=== PATIENT | female | born 1935 | race Caucasian/White ===

== ENCOUNTER → 2016-04-07 | Outpatient (CLI) | payer MEDICARE, OTHER | LOC: GMAJ 15:56 | PROVIDERS: ATTEND Family Medicine | DX: N39.0 Urinary tract infection, site not specified (principal) ==

== ENCOUNTER → 2016-05-05 | Outpatient (CLI) | payer MEDICARE, OTHER ==
--- NOTE | 2016-05-06 07:36 | MRI ---
Study: MRI of the Right Hip. Indication: Right hip pain Technique: Multiplanar, multi sequence MRI of the right hip was obtained without intravenous contrast. Comparison: None. Findings: Marked degenerative tearing noted throughout the entirety of the right hip labrum. There is a large multilobulated para labral cyst tracking along the superior and posterior superior aspects of the acetabulum. It measures up to 35 mm AP. Grade 3 and mild grade 4 chondral thinning throughout the majority of the right hip joint. Mild acetabular roof osteophyte formation. No acute fracture or osteonecrosis. Tiny right effusion. Tendinosis bilateral gluteus minimus/medius tendon insertions with mild bilateral greater trochanteric bursal edema. In addition, there is a 3 cm ganglionic-like fluid collection tracking along the deep margin of the mid to distal left gluteus medius tendon. Tendinosis and attenuation bilateral hamstring tendon origins, left greater than right. Pronounced lower lumbar disc disease. Mild pubic symphysis osteoarthritis. Patchy diminished T1 marrow signal noted throughout the pelvis without corresponding elevated STIR signal. This may reflect red marrow reconversion but is nonspecific. Impression: Moderate right hip osteoarthritis with pronounced degenerative tearing of the right hip labrum with an associated large paralabral cyst as above. Suspected red marrow reconversion throughout the pelvis but ultimately nonspecific marrow signal changes. [place] with CBC recommended. Additional findings above. Electronically signed by: Lamont Carl MD 05/06/2016 7:35 AM HEALTHCARE ARCHITECT
== END | disposition home or self-care (01) ==
LOC: MRI 09:36
PROVIDERS: ATTEND Orthopaedic Surgery
DX: M16.11 Unilateral primary osteoarthritis, right hip (principal)

== ENCOUNTER 2016-05-27 05:51 | Day surgery (SDC) | payer MEDICARE, OTHER ==
[2016-05-27] MEDS ORDERED: LACTATED RINGERS 1,000 ML ONE (06:23)
[2016-05-27] MEDS ORDERED: LIDOCAINE 1% W/ EPINEPHRINE 20 ML VIAL INJ ONE (07:00)
[2016-05-27] MEDS ORDERED: methylPREDNISolone ACETATE 80 MG/ML VIAL ONE ×2 (07:00→07:47)
[2016-05-27] MEDS ORDERED: LIDOCAINE 1% 10 ML VIAL INJ ONE (07:00)
[2016-05-27] MEDS ORDERED: PROPOFOL 200 MG/20 ML VIAL IV ONE (07:00)
[2016-05-27] MEDS ORDERED: BUPIVACAINE 0.25% INJ 30 ML VIAL INJ ONE (07:00)
[2016-05-27] MEDS ORDERED: fentaNYL CITRATE INJ 50 MCG/ML AMP ONE (07:27)
[2016-05-27 08:40] VITALS: BP 125/53; TEMP 97.6; O2SAT 97
--- NOTE | 2016-06-02 09:16 | OP ---
DATE OF PROCEDURE: 05/27/16 PREOPERATIVE DIAGNOSIS: 1. Hip arthritis. 2. Rotator cuff tear. 3. Carpometacarpal arthritis. POSTOPERATIVE DIAGNOSIS: 1. Hip arthritis. 2. Rotator cuff tear. 3. Carpometacarpal arthritis. PROCEDURE: 1. Injection of the hip under anesthesia. 2. Injection of the subacromial space. 3. Injection of the first carpometacarpal joint. SURGEON: Diony Meyer MD BUSINESS SYSTEMS TECHNICIAN: Ventura Cisneros CST, SA-C ANESTHESIA: Conscious sedation. COMPLICATIONS: None. FINDINGS: 1. Hip arthritis. 2. Rotator cuff tear. 3. Osteoarthritis of the first carpometacarpal joint. INDICATION: Ms. Lyle is an 80-year-old female with a history of pain in all three regions as mentioned above. She has requested injection into all three regions and because she was undergoing hip injection under fluoroscopic imaging , she requested that the other two injections be done the conscious sedation as well. After discussing the risks, benefits and alternatives to that, she has given informed consent for that. PROCEDURE: The patient was brought to the Operating Room and placed in supine position. Conscious sedation was administered. The groin was sterilely prepped and draped. Following prepping, a needle was passed into the hip joint. After confirmation of placement of the needle, a combination of Depo- Medrol and lidocaine were injected. The needle was withdrawn and pressure was held. Attention was then focused on the shoulder. The shoulder and first carpometacarpal joint were sterilely prepped and a combination of Depo-Medrol and lidocaine were injected into both areas. All three areas had Band-Aids placed and the patient was taken to the Day Surgery Unit. POSTOPERATIVE INSTRUCTIONS: She will followup with us in about ten days. She will be weight-bearing as tolerated as well as range of motion as tolerated in the shoulder and thumb. #[id number] [facility]
== END 2016-05-27 09:35 | disposition home or self-care (01) ==
LOC: AMB 05:51
PROVIDERS: ATTEND Orthopaedic Surgery
DX: M16.11 Unilateral primary osteoarthritis, right hip (principal); M75.42 Impingement syndrome of left shoulder; M13.842 Other specified arthritis, left hand; Z96.659 Presence of unspecified artificial knee joint; Z79.899 Other long term (current) drug therapy
CPT/HCPCS: 01200; 20600; 20610; 76000; 87070; J1030; J3010; J3490; J7120

== ENCOUNTER → 2016-06-03 | Outpatient (CLI) | payer MEDICARE, OTHER | LOC: GMAJ 14:32 | PROVIDERS: ATTEND Family Medicine | DX: D64.9 Anemia, unspecified (principal) ==

== ENCOUNTER → 2016-06-10 | Outpatient (CLI) | payer MEDICARE, OTHER | END | disposition home or self-care (01) | LOC: BFHH 14:36 | PROVIDERS: ATTEND Internal Medicine Hematology & Oncology | DX: D64.9 Anemia, unspecified (principal) ==

== ENCOUNTER → 2016-06-17 | Outpatient (CLI) | payer MEDICARE, OTHER | LOC: BFHH 12:26 | PROVIDERS: ATTEND Family Medicine | DX: D64.9 Anemia, unspecified (principal) ==

== ENCOUNTER → 2016-06-24 | Outpatient (CLI) | payer MEDICARE, OTHER | END | disposition home or self-care (01) | LOC: BFHH 11:05 | PROVIDERS: ATTEND Internal Medicine Hematology & Oncology | DX: D64.9 Anemia, unspecified (principal) ==

== ENCOUNTER → 2016-07-01 | Outpatient (CLI) | payer MEDICARE, OTHER | LOC: BFHH 13:41 | PROVIDERS: ATTEND Family Medicine | DX: D64.9 Anemia, unspecified (principal) ==

== ENCOUNTER → 2016-07-02 | Outpatient (CLI) | payer MEDICARE, OTHER | LOC: LAB.O 08:49 | PROVIDERS: ATTEND Orthopaedic Surgery | DX: Z01.818 Encounter for other preprocedural examination (principal) ==

== ENCOUNTER → 2016-07-08 | Outpatient (CLI) | payer MEDICARE, OTHER | LOC: BFHH 11:42 | PROVIDERS: ATTEND Internal Medicine Hematology & Oncology | DX: D64.9 Anemia, unspecified (principal) ==

== ENCOUNTER 2016-07-14 06:02 | Day surgery (SDC) | payer MEDICARE, OTHER ==
--- NOTE | 2016-07-11 11:52 | HP ---
CHIEF COMPLAINT: Foreign body of the left third digit. HISTORY OF PRESENT ILLNESS: Ms. Lyle is an 80 year-old female with a history of mass on the left third digit of the distal end. Ms. Lyle remembers having a piece of glass stuck in there. She said she tried to get it out and thought she had at the time. The end of the digit has been irritated ever since then, although she has had no drainage. She denies any other injury associated with this. PAST SURGICAL HISTORY: 1. Rotator cuff repair. 2. Bunionectomy. 3. Herniorrhaphy. 4. Carotid endarterectomy. 5. Right knee arthroscopy. 6. Total knee arthroplasty. CURRENT MEDICATIONS: 1. Ultram. 2. Simvastatin. 3. Levothyroxine. 4. Diovan. 5. Aspirin. 6. Zantac. 7. Plaquenil. 8. Prednisone. 9. Remicade. ALLERGIES: PENICILLIN. CODE STATUS: FULL CODE. IMMUNIZATIONS: Up to date. FAMILY HISTORY: None pertinent to today's complaints. SOCIAL HISTORY: The patient does not drink, smoke or use any illicit drugs. REVIEW OF SYSTEMS: Negative except as indicated in the History of Present Illness. PHYSICAL EXAMINATION: VITAL SIGNS: Blood pressure 141/62, pulse 67, height 5' 6", weight 153. MENTAL STATUS: The patient is awake, alert, and is able to give a good history and participate in the physical. The patient is oriented to person, place and time. SKIN: Normal tone and turgor. MUSCULOSKELETAL: She has a small area at the distal end of the digit that has some whitish discoloration but it does not appear purulent and there is no surrounding erythema. She has warm and well perfused extremity. Sensation is intact. She maintains full range of motion. X-RAYS: X-rays do show a small piece of glass in the distal finger. ASSESSMENT: 1. Foreign body of the finger. PLAN: The plan at this point is for excision of the foreign body. We have discussed the risks, benefits, and alternatives to that and she has given informed consent for that. #[id number] [facility]
[2016-07-14] MEDS ORDERED: CARBOXYMETHYLCELLULOSE 0.5% 0.4 ML UD ONE (06:22)
[2016-07-14] MEDS ORDERED: MIDAZOLAM INJ 5 MG/5 ML VIAL ONE (06:22)
[2016-07-14] MEDS ORDERED: MORPHINE SULF *EPIDURAL* 1 MG/ML VIAL ONE (06:22)
[2016-07-14] MEDS ORDERED: fentaNYL CITRATE INJ 50 MCG/ML AMP ONE ×2 (06:22→09:57)
[2016-07-14] MEDS ORDERED: ACETAMINOPHEN IV 1000MG 0 ML ONE (06:28)
[2016-07-14] MEDS ORDERED: BUPIVACAINE 0.25% INJ 30 ML VIAL INJ ONE (06:54)
[2016-07-14] MEDS ORDERED: LIDOCAINE 1% 50 ML VIAL INJ ONE (06:55)
[2016-07-14] MEDS ORDERED: LACTATED RINGERS 1,000 ML ONE (07:28)
[2016-07-14] MEDS ORDERED: SODIUM CHL 0.9% 50ML MIN-BAG+ 50 ML IVPB ONE (07:28)
[2016-07-14] MEDS ORDERED: ceFAZolin SODIUM 1 GM VIAL ONE (07:28)
[2016-07-14] MEDS: ceFAZolin SODIUM 1 GM VIAL ONE ×2 (10:45→10:49)
[2016-07-14] MEDS: VANCOMYCIN HCL INJ 1,000 MG VIAL IVPB ONE ×2 (10:46→10:49)
[2016-07-14 11:42] VITALS: BP 160/61; TEMP 98.3; O2SAT 98
[2016-07-14] MEDS ORDERED: LIDOCAINE 1% 10 ML VIAL INJ ONE (12:00)
[2016-07-14] MEDS ORDERED: PROPOFOL 200 MG/20 ML VIAL IV ONE (12:00)
--- NOTE | 2016-07-15 10:32 | OP ---
DATE OF PROCEDURE: 07/14/16 PREOPERATIVE DIAGNOSIS: 1. Foreign body of the left third digit. POSTOPERATIVE DIAGNOSIS: 1. Foreign body of the left third digit. PROCEDURE: 1. Removal of foreign body and I&D. SURGEON: Diony Meyer MD LOCKSTITCH POCKET SETTER: Ventura Cisneros PULL UP HAND, SA-C ANESTHESIA: Local with sedation. COMPLICATIONS: None. FINDINGS: A very small amount of purulence with small retained piece of glass measuring less than 1 mm. INDICATION: Ms. Lyle has a history of a foreign body that penetrated the distal tip of her finger. She says it was a piece of glass and she thought she had gotten it all out. This was about two months ago. She had ongoing pain from the puncture wound with discoloration at the distal portion. She had requested operative intervention secondary to ongoing discomfort. After discussing the risks, benefits and alternatives to that, she gave informed consent for removal of foreign body with I&D of her finger. PROCEDURE: The patient was brought to the Operating Room and placed in supine position. Sedation was administered and local anesthetic was injected to effect a ring block on the digit. Following that, the hand was sterilely prepped and draped. The digit was approached using an incision directly over the area and upon incision, it was noted that there was a very small amount of purulence. Subsequent to that, fluoroscopy was used to identify the foreign body. It was thoroughly irrigated and removed and cultures were taken at the time. Subsequent to that, fluoroscopy was again performed and there was no evidence of retained foreign body. The wound was again very thoroughly irrigated. The wound was closed with a single Nylon suture. Sterile dressing was placed. The patient was taken back to the Day Surgery Unit. POSTOPERATIVE INSTRUCTIONS: She will followup with us in two days and will begin doxycycline prophylactically. We will await culture results for any change needed in therapy. #[id number] [facility]
== END 2016-07-14 11:30 | disposition home or self-care (01) ==
LOC: AMB 06:02
PROVIDERS: ATTEND Orthopaedic Surgery
DX: M79.5 Residual foreign body in soft tissue (principal); Z88.0 Allergy status to penicillin; Z79.82 Long term (current) use of aspirin; Z79.899 Other long term (current) drug therapy
CPT/HCPCS: 00400; 10120; 76000; 87070; J0690; J3010; J3370; J3490; J7050; J7120

== ENCOUNTER → 2016-07-15 | Outpatient (CLI) | payer MEDICARE, OTHER | END | disposition home or self-care (01) | LOC: BFHH 12:21 | PROVIDERS: ATTEND Internal Medicine Hematology & Oncology | DX: M16.11 Unilateral primary osteoarthritis, right hip (principal); D64.9 Anemia, unspecified; M24.851 Other specific joint derangements of right hip, not elsewhere classified ==

== ENCOUNTER → 2016-07-22 | Outpatient (CLI) | payer MEDICARE, OTHER | END | disposition home or self-care (01) | LOC: BFHH 11:52 | PROVIDERS: ATTEND Internal Medicine Hematology & Oncology | DX: D64.9 Anemia, unspecified (principal); M16.11 Unilateral primary osteoarthritis, right hip; M24.851 Other specific joint derangements of right hip, not elsewhere classified ==

== ENCOUNTER → 2016-07-29 | Outpatient (CLI) | payer MEDICARE, OTHER | END | disposition home or self-care (01) | LOC: BFHH 09:31 | PROVIDERS: ATTEND Family Medicine | DX: D64.9 Anemia, unspecified (principal); M16.11 Unilateral primary osteoarthritis, right hip; I48.91 Unspecified atrial fibrillation; I10 Essential (primary) hypertension; M24.851 Other specific joint derangements of right hip, not elsewhere classified ==

== ENCOUNTER → 2016-08-05 | Outpatient (CLI) | payer MEDICARE, OTHER | END | disposition home or self-care (01) | LOC: BFHH 12:46 | PROVIDERS: ATTEND Internal Medicine Hematology & Oncology | DX: D64.9 Anemia, unspecified (principal); M16.11 Unilateral primary osteoarthritis, right hip; M24.851 Other specific joint derangements of right hip, not elsewhere classified ==

== ENCOUNTER → 2016-08-12 | Outpatient (CLI) | payer MEDICARE, OTHER | END | disposition home or self-care (01) | LOC: BFHH 13:08 | PROVIDERS: ATTEND Internal Medicine Hematology & Oncology | DX: D64.9 Anemia, unspecified (principal); M16.11 Unilateral primary osteoarthritis, right hip; M24.851 Other specific joint derangements of right hip, not elsewhere classified ==

== ENCOUNTER → 2016-08-19 | Outpatient (CLI) | payer MEDICARE, OTHER | END | disposition home or self-care (01) | LOC: BFHH 12:50 | PROVIDERS: ATTEND Internal Medicine Hematology & Oncology | DX: D64.9 Anemia, unspecified (principal); M16.11 Unilateral primary osteoarthritis, right hip; M24.851 Other specific joint derangements of right hip, not elsewhere classified ==

== ENCOUNTER → 2016-08-26 | Outpatient (CLI) | payer MEDICARE, OTHER | END | disposition home or self-care (01) | LOC: BFHH 14:06 | PROVIDERS: ATTEND Internal Medicine Hematology & Oncology | DX: N18.9 Chronic kidney disease, unspecified (principal); D63.1 Anemia in chronic kidney disease ==

== ENCOUNTER → 2016-09-02 | Outpatient (CLI) | payer MEDICARE, OTHER | END | disposition home or self-care (01) | LOC: BFHH 13:36 | PROVIDERS: ATTEND Internal Medicine Hematology & Oncology | DX: I12.9 Hypertensive chronic kidney disease with stage 1 through stage 4 chronic kidney disease, or unspecified chronic kidney disease (principal); N18.9 Chronic kidney disease, unspecified; D63.1 Anemia in chronic kidney disease ==

== ENCOUNTER → 2016-09-21 | Outpatient (CLI) | payer MEDICARE, OTHER ==
--- NOTE | 2016-09-21 11:17 | RAD ---
EXAM DESCRIPTION: Hand,Left 3 Views CLINICAL HISTORY: PAIN IN LEFT HAND COMPARISON: Opposite right hand TECHNIQUE: AP, LATERAL, AND OBLIQUE FINDINGS: Three-view left hand shows no fracture or agustín dislocation Severe degenerative changes and subluxation at the base of the thumb at the carpal metacarpal articulation is present. Bone on bone appearance of the wrist is noted with severe scapholunate dissociation noted at with the capitate almost articulating with the distal radius. The bones are osteopenic. The distal radial ulnar joint appears unremarkable. Marked hypertrophic changes involving the interphalangeal joints on the lateral view are incidentally noted suggesting DJD or erosive osteoarthropathy. IMPRESSION: 1. Markedly abnormal left wrist with severe degenerative changes and subluxation at the base of the thumb as well as severe scapholunate dissociation and osteopenia. Electronically signed by: Christian Hess MD 09/21/2016 11:16 AM CDT
--- NOTE | 2016-09-21 11:20 | RAD ---
EXAM DESCRIPTION: Hand,Right 3 Views CLINICAL HISTORY: PAIN IN RIGHT HAND COMPARISON: Opposite left hand TECHNIQUE: AP, LATERAL, AND OBLIQUE FINDINGS: Severe osteopenia is noted. Marked deformity of the fingers is evident with findings typical of erosive osteoarthropathy. Moderate degenerative changes involving the wrist with mild scapholunate dissociation is present. The wrist changes are much less severe at this location and at the base of the thumb. No acute fracture or agustín dislocation is seen. IMPRESSION: 1. Severe degenerative and erosive changes involving the fingers particularly the third and fourth digits consistent with erosive osteoarthropathy. 2. Moderate degenerative changes and scapholunate mild dissociation at the wrist and degenerative changes at the base of the thumb. Electronically signed by: Christian Hess MD 09/21/2016 11:18 AM CDT
== END ==
LOC: RAD 08:03
PROVIDERS: ATTEND Orthopaedic Surgery
DX: M79.642 Pain in left hand (principal); M79.641 Pain in right hand; S63.102A Unspecified subluxation of left thumb, initial encounter; M12.841 Other specific arthropathies, not elsewhere classified, right hand

== ENCOUNTER → 2016-10-14 | Outpatient (CLI) | payer MEDICARE, OTHER | END | disposition home or self-care (01) | LOC: BFHH 14:19 | PROVIDERS: ATTEND Internal Medicine Hematology & Oncology | DX: M18.9 Osteoarthritis of first carpometacarpal joint, unspecified (principal); D63.1 Anemia in chronic kidney disease; I12.9 Hypertensive chronic kidney disease with stage 1 through stage 4 chronic kidney disease, or unspecified chronic kidney disease ==

== ENCOUNTER → 2016-10-29 | Outpatient (CLI) | payer MEDICARE, OTHER | END | disposition home or self-care (01) | LOC: LAB.O 09:48 | PROVIDERS: ATTEND Orthopaedic Surgery | DX: Z01.818 Encounter for other preprocedural examination (principal) ==

== ENCOUNTER 2016-11-03 08:10 | Day surgery (SDC) | payer MEDICARE, OTHER ==
--- NOTE | 2016-11-02 09:13 | HP ---
CHIEF COMPLAINT: Right hand numbness and left thumb pain. HISTORY OF PRESENT ILLNESS: Ms. Lyle is an 80-year-old female with a history of numbness in the right hand. It has been long established and has been giving her difficulty with her activities. She has had pain in the left hand that she localizes most prominently to the first carpometacarpal joint. She denies any related to the onset of either symptoms on the right hand or the left hand. She has requested operative intervention. After discussing the risks, benefits and alternatives to both sides, the plan at this point is for carpal tunnel release on the right and left thumb first carpometacarpal joint injection. The patient has given informed consent. PAST SURGICAL HISTORY: 1. Rotator cuff repair. 2. Bunionectomy. 3. Herniorrhaphy. 4. Carotid endarterectomy. 5. Right knee arthroscopy. 6. Right knee replacement. MEDICATIONS: 1. Ultram. 2. Simvastatin. 3. Levothyroxine. 4. Diovan. 5. Aspirin. 6. Zantac. 7. Plaquenil. 8. Prednisone. 9. Remicade. ALLERGIES: PENICILLIN. CODE STATUS: Unknown. IMMUNIZATIONS: Up to date. SOCIAL HISTORY: The patient does not drink, smoke or use any illicit drugs. FAMILY HISTORY: None pertinent to today's complaint. REVIEW OF SYSTEMS: Negative except as indicated in the History of Present Illness. PHYSICAL EXAMINATION: VITAL SIGNS: Blood pressure 129/51. Pulse 76. Height 5'6". Weight 152. MENTAL STATUS: The patient is awake, alert, and is able to give a good history and participate in the physical. The patient is oriented to person, place and time. SKIN: Normal tone and turgor. MUSCULOSKELETAL: She has pretty advanced thenar atrophy on the affected hand although she does have intact senior enlisted advisor strength. Sensation is intact on the ulnar aspect of the hand. The hand is warm and well perfused. 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 She has positive carpal compression test. The left hand shows severe pain at the first carpometacarpal joint with deformity and crepitus. She has pain with axial compression. Sensation is intact. It is warm and well perfused. ASSESSMENT: 1. Carpal tunnel syndrome. 2. First carpometacarpal joint arthritis. PLAN: The plan at this point is for carpal tunnel release as well as first carpometacarpal joint infection. She has been counseled as to the risks, benefits, and alternatives to that and the patient has given informed consent. #[id number] [facility]
[2016-11-03] MEDS ORDERED: LACTATED RINGERS 1,000 ML ONE (09:15)
[2016-11-03] MEDS ORDERED: ceFAZolin SODIUM 1 GM VIAL ONE ×2 (09:15→11:26)
[2016-11-03] MEDS ORDERED: SODIUM CHL 0.9% 100ML MINI-BAG 100 ML IVPB ONE (09:15)
[2016-11-03] MEDS ORDERED: BUPIVACAINE 0.25% INJ 30 ML VIAL INJ ONE (11:26)
[2016-11-03] MEDS ORDERED: VANCOMYCIN HCL INJ 1,000 MG VIAL IVPB ONE (11:26)
[2016-11-03] MEDS ORDERED: LIDOCAINE 1% 50 ML VIAL INJ ONE (11:26)
[2016-11-03] MEDS ORDERED: PROPOFOL 200 MG/20 ML VIAL IV ONE (12:00)
[2016-11-03] MEDS ORDERED: LIDOCAINE 1% 10 ML VIAL INJ ONE (12:00)
[2016-11-03] MEDS ORDERED: fentaNYL CITRATE INJ 50 MCG/ML AMP ONE (12:20)
[2016-11-03] MEDS ORDERED: methylPREDNISolone ACETATE 80 MG/ML VIAL ONE (12:34)
[2016-11-03 14:39] VITALS: O2SAT 100
[2016-11-03 14:42] VITALS: BP 142/58; TEMP 97.1
--- NOTE | 2016-11-04 09:48 | OP ---
DATE OF PROCEDURE: 11/03/16 PREOPERATIVE DIAGNOSIS: 1. Right carpal tunnel syndrome. 2. Left hand osteoarthritis. POSTOPERATIVE DIAGNOSIS: 1. Right carpal tunnel syndrome. 2. Left hand osteoarthritis. PROCEDURE: 1. Right carpal tunnel release. 2. Injection of left first carpometacarpal joint. SURGEON: Diony Meyer MD. MECHANICAL ADJUSTER: Ventura Cisneros CST, SA-C. ANESTHESIA: Local with sedation. COMPLICATIONS: None. FINDINGS: 1. Thenar atrophy of the right with thickening of the transverse carpal ligament. 2. Osteoarthritis of the left hand with deformity at the first carpometacarpal joint. INDICATION: Ms. Lyle has a history of bilateral carpal tunnel syndrome as well as arthritis of the hand. She has severe symptoms to the point now where they are present at rest. Because of her ongoing symptoms and failure of conservative measures, she has requested operative intervention. After discussing the risks, benefits and alternatives to that, the patient has given informed consent for that. PROCEDURE: The patient was brought to the Operating Room and placed in the supine position. Sedation was administered and local anesthetic was injected into the operative area under sterile conditions. After the injection of anesthetic, the arm was sterilely prepped and draped. A longitudinal incision was made directly overlying the transverse carpal ligament and blunt dissection was carried down to the ligament. The transverse carpal ligament was sharply transected along its length and a [place] elevator was used to ensure complete release of the ligament. Once release had been confirmed, the wound was thoroughly irrigated and the wound was closed with Nylon suture. A sterile dressing was placed. The area of the first carpometacarpal joint was sterilely prepped. Following prepping, the first carpometacarpal joint was identified and a mixture of lidocaine and Depo-Medrol was injected. The needle was withdrawn. Sterile bandage was placed. The patient was taken to the Day Surgery Unit. POSTOPERATIVE INSTRUCTIONS: The patient has been encouraged to do range of motion of the digits and will followup with us in two days. [facility][id number] [facility]
== END 2016-11-03 13:40 | disposition home or self-care (01) ==
LOC: AMB 08:10
PROVIDERS: ATTEND Orthopaedic Surgery
DX: G56.01 Carpal tunnel syndrome, right upper limb (principal); M19.042 Primary osteoarthritis, left hand; I10 Essential (primary) hypertension; I25.10 Atherosclerotic heart disease of native coronary artery without angina pectoris; K21.9 Gastro-esophageal reflux disease without esophagitis; G25.81 Restless legs syndrome; M06.9 Rheumatoid arthritis, unspecified; Z96.651 Presence of right artificial knee joint; Z88.0 Allergy status to penicillin; Z79.82 Long term (current) use of aspirin; Z79.899 Other long term (current) drug therapy
CPT/HCPCS: 01810; 20600; 64721; J0690; J1030; J3010; J3370; J3490; J7050; J7120

== ENCOUNTER → 2017-02-03 | Outpatient (CLI) | payer MEDICARE, OTHER ==
--- NOTE | 2017-02-04 18:26 | US ---
EXAM DESCRIPTION: Soft Tissue,Extremity CLINICAL HISTORY: 81 years Female SUBCUTANEOUS MASS RT BUTTOCK COMPARISON: X-ray 12/16/2015. TECHNIQUE: Transabdominal grayscale imaging performed to evaluate the palpable abnormality in the region of the right buttock. FINDINGS: There are two circumscribed calcified lesions which correspond to the palpable masses. The larger of the two measures 1.3 cm and the smaller 0.7 x 0.9 cm. As compared to the patient's prior examination, these correlate with two circumscribed foci of calcification likely injection granuloma. IMPRESSION: Two circumscribed calcifications in the soft tissues of the right buttock which correspond with injection granuloma seen on prior x-ray Electronically signed by: Anusha Glasgow 02/04/2017 6:25 PM [facility]
== END | disposition home or self-care (01) ==
LOC: US 12:13
PROVIDERS: ATTEND Surgery
DX: R22.41 Localized swelling, mass and lump, right lower limb (principal)

== ENCOUNTER → 2017-03-03 | Outpatient (CLI) | payer MEDICARE, OTHER | END | disposition home or self-care (01) | LOC: BFHH 16:41 | PROVIDERS: ATTEND Internal Medicine Hematology & Oncology | DX: I12.9 Hypertensive chronic kidney disease with stage 1 through stage 4 chronic kidney disease, or unspecified chronic kidney disease (principal); N18.9 Chronic kidney disease, unspecified; D63.1 Anemia in chronic kidney disease ==

== ENCOUNTER → 2017-08-16 | Outpatient (CLI) | payer MEDICARE, OTHER | LOC: LAB.NP 15:48 | PROVIDERS: ATTEND Family Medicine | DX: I50.9 Heart failure, unspecified (principal) ==

== ENCOUNTER 2017-08-18 16:15 | Observation (INO) | payer MEDICARE, OTHER ==
[2017-08-18] MEDS ORDERED: SODIUM CHLORIDE 0.9% 1000ML 500 ML IVS ONE (17:29)
--- NOTE | 2017-08-18 17:43 | CT ---
EXAM DESCRIPTION: Head CLINICAL HISTORY: fall on eliquis COMPARISON: None available TECHNIQUE: Noncontrast head CT was performed with routine protocol. FINDINGS: Normal martinez-white matter differentiation. Ventricles and sulci are prominent consistent with age-related cerebral volume loss. Low density white matter is consistent with chronic microvascular ischemic changes related to aging, diabetes or hypertension. Basal ganglial calcification is incidentally noted. No high density hemorrhage, focal edema or shift of the midline. No sulcal effacement. Normal orbital contents. Basilar cisterns appear clear. Intact calvarium with no fracture or lytic lesion. Normal aeration of tympanic cavities and mastoid air cells. No fluid levels in the paranasal sinuses. Skull base appears intact. Symmetrical internal auditory canals. Coronal and sagittal reformatted images confirm the findings. There is calcification of intracranial internal carotid arteries. IMPRESSION: No acute intracranial pathologic process. This exam was performed according to our departmental dose-optimization program, which includes automated exposure control, adjustment of the mA and/or kV according to patient size and/or use of iterative reconstruction technique. Total DLP equals 859.97 mGycm. Electronically signed by: Angel Luis Duran MD 08/18/2017 5:42 PM CDT
--- NOTE | 2017-08-18 17:44 | RAD ---
EXAM DESCRIPTION: Chest,1 View CLINICAL HISTORY: Syncope COMPARISON: July 23, 2017 IMPRESSION: Single frontal view of the chest. Cardiac silhouette and pulmonary vascularity are within normal limits. Mild calcific atherosclerosis noted of the thoracic aorta. Persistent mild elevation of the left hemidiaphragm relative to the right, unchanged compared to previous. Minimal linear opacities in the left lateral lower lung zone, most likely representing subsegmental atelectasis. Right lung is clear. Mild blunting of the left costophrenic angle, compatible with small left-sided pleural effusion. No pneumothorax. Electronically signed by: Trung Ramso MD 08/18/2017 5:43 PM CDT
--- NOTE | 2017-08-18 18:02 | ED.PDOC ---
History of Present Illness - General Chief Complaint: Neuro Symptoms/Deficits Stated Complaint: syncope Time Seen by Provider: 08/18/17 16:31 Source: patient Exam Limitations: no limitations - History of Present Illness Initial Comments: the patient is an 81-year-old female presenting to the emergency room with her family secondary to multiple syncopal episodes over the last couple of days. The patient does have a known history of CHF with arrhythmia. She was recently in [facility] and family reports that they diuresed more than 20 pounds off of her. They apparently changed her blood thinner to Eliquis at that time and added amiodarone on board. The patient has been continued on fairly high dose diuretics since her hospital stay. She does appear to have very little edema at this time. She is not requiring any oxygen. She does have a left temporal hematoma from a syncopal episode yesterday. She does not otherwise appear to really be hurting anywhere. She is alert pleasant and cooperative. Telemetry shows sinus bradycardia at a rate of 40s to 50s. Systolic blood pressures are in the 140s to 150s. The patient is frail and thin. She does have chronic renal insufficiency and does take Procrit injections for anemia. No fevers. No productive cough. No urinary symptoms. No abdominal pain. The syncopal episodes have been witnessed by family on several occasions. Timing/Duration: unsure Severity: moderate Improving Factors: nothing Worsening Factors: nothing Associated Symptoms: malaise, syncope, weakness Allergies/Adverse Reactions: Allergies Penicillins Allergy (Mild, Verified 08/18/17 16:47) Rash Home Medications: Ambulatory Orders Tramadol HCl [Ultram] 50 mg PO QID 05/25/16 Amiodarone HCl 200 mg PO DAILY 08/18/17 Apixaban [Eliquis] 2.5 mg PO BID 08/18/17 Aspirin [Aspirin Adult Low Dose] 81 mg PO DAILY 08/18/17 Clonazepam [Clonazepam] 1 mg PO BEDTIME 08/18/17 Cyanocobalamin Inj [Vitamin B-12 Inj] 1,000 mcg IM MONTHLY 08/18/17 Furosemide [Furosemide] 20 mg PO .QNOON 08/18/17 Furosemide [Furosemide] 40 mg PO DAILY 08/18/17 Gabapentin [Neurontin] 300 mg PO BEDTIME 08/18/17 Hydroxychloroquine Sulfate [Plaquenil] 200 mg PO BID 08/18/17 Levothyroxine Sodium 125 mcg PO DAILY 08/18/17 Meloxicam [Mobic] 7.5 mg PO DAILY 08/18/17 Potassium Chloride [Micro-K] 10 meq PO DAILY 08/18/17 Pravastatin Sodium [Pravachol] 20 mg PO DAILY 08/18/17 Sennosides-Docusate Sodium [Senokot S] 2 tab PO DAILY PRN 08/18/17 Review of Systems - Review of Systems Constitutional: States: malaise, weakness - generalized EENTM: States: no symptoms reported Respiratory: States: no symptoms reported Cardiology: States: syncope Gastrointestinal/Abdominal: States: no symptoms reported Genitourinary: States: no symptoms reported Musculoskeletal: States: no symptoms reported Skin: States: see HPI Neurological: States: no symptoms reported Endocrine: States: no symptoms reported All other Systems: No Change from Baseline Past Medical History (General) - Patient Medical History Hx Cardiac Disorders: Yes - a fib Hx Congestive Heart Failure: Yes Hx Hypertension: Yes Hx Thyroid Disease: Yes Hx Diabetes: No Hx Renal Disease: Yes Hx MRSA: Yes - in 2014 has been treated. MRSA Source:: nose Surgical History: cholecystectomy, Hysterectomy - Vaccination History Hx Influenza Vaccination: Yes Hx Pneumococcal Vaccination: Yes - Social History Hx Tobacco Use: No Hx Alcohol Use: No Family Medical History - Family History Mother Family History: Unknown Living Status: Physical Exam - Physical Exam General Appearance: Alert, Frail, No apparent distress Eye Exam: bilateral normal Ears, Nose, Throat: hearing grossly normal, normal ENT inspection Neck: full range of motion, supple, normal inspection Respiratory: lungs clear, normal breath sounds, no respiratory distress, no accessory muscle use Cardiovascular/Chest: normal peripheral pulses, no edema, other - sinus bradycardia on telemetry Peripheral Pulses: radial,right: 2+, radial,left: 2+, dorsalis pedis,right: 2+, dorsalis pedis,left: 2+ Gastrointestinal/Abdominal: non tender, soft Rectal Exam: deferred Back Exam: normal inspection, no CVA tenderness, no vertebral tenderness Extremity: normal range of motion, non-tender, normal inspection, no pedal edema 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 Right bundle branch block which is not new. Difficult to interpret otherwise. This does largely appear consistent with some of her previous EKGs. Borderline QT interval. Chest x-ray shows some mild cardiomegaly but no definitive infiltrates, definite overt fluid overload or pneumothorax. No definite masses. CT scan of the head shows senescent changes. No acute pathology. No significant hydrocephalus. No hemorrhage. Laboratory Results - last 24 hr 08/18/17 08/18/17 08/18/17 17:04 17:04 17:04 WBC 4.5 L RBC 3.97 L Hgb 11.6 L Hct 34.3 L MCV 86.4 MCH 29.2 MCHC 33.9 RDW 15.4 H Plt Count 171 MPV 8.0 Absolute Neuts (auto) 3.00 Absolute Lymphs (auto) 0.70 L Absolute Monos (auto) 0.50 Absolute Eos (auto) 0.10 Absolute Basos (auto) 0.10 Neutrophils % 67.3 Lymphocytes % 15.6 L Monocytes % 12.1 H Eosinophils % 3.3 Basophils % 1.7 PT 18.1 H INR 1.570 PTT (SP) 42.3 H Sodium 129 L Potassium 4.9 Chloride 94 L Carbon Dioxide 30 Anion Gap 9.9 L BUN 37 H Creatinine 1.39 H BUN/Creatinine Ratio 26.6 H Random Glucose 106 H Serum Osmolality 268.0 L Calcium 9.1 Magnesium 2.2 Total Bilirubin 0.8 AST 30 ALT 20 Alkaline Phosphatase 59 Creatine Kinase 108 B-Natriuretic Peptide 499.0 H* Serum Total Protein 6.7 Albumin 4.2 Globulin 2.5 Albumin/Globulin Ratio 1.7 Progress - Progress Progress: 08/18/17 18:05 the patient is a 81-year-old female presenting to the emergency room secondary to multiple witnessed syncopal episodes in the last couple of days. This appears most likely to be due to a combination of an overabundance of heart rate control medications and diuretics. The metoprolol was discontinued today. The patient will be admitted for monitoring for her bradycardia which is likely contributing. She is on amiodarone and the dose may yet require further adjustment. It appears that she has been continued on fairly high-dose diuretics in spite of adequate diuresis at this time. She is being given a small IV fluid bolus back. She will need to be restarted on diuretics at a lower dose. Head CT is negative for any acute hemorrhage. Urinalysis is still pending. She does have mild hyponatremia likely from the diuresis. This will likely correct itself. Admit for further monitoring and medication adjustment and regards to her syncopal episodes. Departure - Departure Clinical Impression: Dehydration, Sinus bradycardia Syncope Qualifiers: Syncope type: unspecified Qualified Code(s): R55 - Syncope and collapse Disposition: Admit Patient Referrals: Kendrick Thompson MD [Primary Care Provider] - 1-2 Weeks Home Medications: Ambulatory Orders Tramadol HCl [Ultram] 50 mg PO QID 05/25/16 Amiodarone HCl 200 mg PO DAILY 08/18/17 Apixaban [Eliquis] 2.5 mg PO BID 08/18/17 Aspirin [Aspirin Adult Low Dose] 81 mg PO DAILY 08/18/17 Clonazepam [Clonazepam] 1 mg PO BEDTIME 08/18/17 Cyanocobalamin Inj [Vitamin B-12 Inj] 1,000 mcg IM MONTHLY 08/18/17 Furosemide [Furosemide] 20 mg PO .QNOON 08/18/17 Furosemide [Furosemide] 40 mg PO DAILY 08/18/17 Gabapentin [Neurontin] 300 mg PO BEDTIME 08/18/17 Hydroxychloroquine Sulfate [Plaquenil] 200 mg PO BID 08/18/17 Levothyroxine Sodium 125 mcg PO DAILY 08/18/17 Meloxicam [Mobic] 7.5 mg PO DAILY 08/18/17 Potassium Chloride [Micro-K] 10 meq PO DAILY 08/18/17 Pravastatin Sodium [Pravachol] 20 mg PO DAILY 08/18/17 Sennosides-Docusate Sodium [Senokot S] 2 tab PO DAILY PRN 08/18/17 Decision To Admit - Decistion To Admit Decision to Admit Reason: Medical Nature Decision to Admit Date: 08/18/17 Decision to Admit Time: 18:08
--- NOTE | 2017-08-18 18:34 | HP ---
SUPERVISING PHYSICIAN: Christian Xiao M.D. CHIEF COMPLAINT: Syncope. HISTORY OF PRESENT ILLNESS: Ms. Lyle is an 81 year-old female patient who presented to the Emergency Room via private vehicle with her family after she had had several syncopal episodes at home over the last several days. She noted that she had passed out at the table at one time and hit her head on the left side resulting in a contusion. She does have a history of congestive heart failure and atrial fibrillation. She was recently at [facility] on 07/31/15 for exacerbation of congestive heart failure. At that time they diuresed over 20 pounds of fluid off. The patient does take Amiodarone and at some point has been on metoprolol. She was discharged and was continued on high dose diuretics. In the Emergency Room, telemetry showed that she was bradycardic in the 40s to 50s with a systolic blood pressure ranging from 140 to 150s. She also has a history of iron deficiency anemia secondary to renal insufficiency and is currently on Procrit injections. CT of the head was completed and per radiology interpretation no acute intracranial pathological process was noted. Chest CT single view per radiology interpretation showed the pulmonary vasculature to be within normal limits with some mild blunting of the left costophrenic angle compatible with small left sided pleural effusion. No pneumothoraxes were noted. Laboratory studies showed she was hyponatremic at 129 with acute renal insufficiency with a creatinine of 1.39. BNP was elevated at 499. EKG 12 lead in the Emergency Department showed sinus bradycardia at 52 with a right bundle branch block which is a chronic finding. Given her past medical history, recent hospitalization and concerns for additional syncopal episodes due to unknown causes, the patient is going to be placed in Observation at least for 23 hour observation for cardiac telemetry monitoring and IV fluids in efforts to rehydrate and correct her hyponatremia. The patient was placed in Observation in stable condition. PAST MEDICAL HISTORY: 1. Congestive heart failure with a systolic dysfunction and estimated ejection fraction of 20% on last echocardiogram in 2018. 2. Chronic renal failure. 3. Atrial fibrillation on Amiodarone. 4. Hyperlipidemia. 5. Hypertension. 6. Hypothyroidism on supplementation. 7. Osteoarthritis. 8. Peptic ulcer disease. 9. Chronic renal failure. 10. Lumbar disc disease. 11. Psoriatic arthritis. PAST SURGICAL HISTORY: 1. Cholecystectomy. 2. Hemorrhoidectomy. 3. Hernia repair incisional. 4. Hysterectomy. 5. Left knee replacement in 2011. 6. Carotid endarterectomy in 2006 on the left. 7. Rotator cuff repair on the right. 8. Exploratory laparoscopy for a small bowel obstruction in 2014. HOME MEDICATIONS: 1. Gabapentin 300 mg at bedtime. 2. Eliquis 2.5 mg b.i.d. 3. Amiodarone 200 mg daily. 4. Lasix 20 to 40 mg daily as needed. 5. Potassium chloride Micro-K 10 mEq daily. 6. Citalopram 10 mg. 7. Pravachol 20 mg daily. 8. Klonopin 1 mg daily. 9. Vitamin B12 injection 1,000 mcg IM monthly. 10. Ultram 50 mg every 6 hours p.r.n. 11. Levothyroxine 125 mcg daily,. 12. Senokot 2 tablets daily. ALLERGIES: PENICILLINS. FAMILY HISTORY: Significant for pancreatic cancer in her mother. SOCIAL HISTORY: The patient is a retired beautician. She is and lives in [place], [place]. She has smoked but quit in the 70's and drinks a rare beer on occasion. She denies any illicit drug use. REVIEW OF SYSTEMS: CONSTITUTIONAL: Reported generalized weakness and malaise. HEENT: No sore throat, ear aches, nasal congestion, headaches. RESPIRATORY: No reported wheezing, coughing, shortness of breath. CARDIOVASCULAR: As noted in history of present illness, recent syncopal episode with history of congestive heart failure. GASTROINTESTINAL: Does note she has some issues with constipation but no abdominal pains, diarrhea or nausea or vomiting. GENITOURINARY: Denies any dysuria, hematuria, polyuria or other urinary symptoms. INTEGUMENT: As noted in History of Present Illness, bruise to left temporal area status post fall. No other lesions or rashes. NEUROLOGIC: As noted in History of Present Illness, syncopal episode but no seizure activities, ataxia, headaches, vision changes, dizziness or other lateralized or focalized neuro deficits. PHYSICAL EXAMINATION: VITAL SIGNS: In the Emergency Department initially temperature 98.6, pulse 55, blood pressure 157/55, respirations 18, satting 96% on room air. Admission weight is 59.2 kg. GENERAL: On admission to the Medical/Surgical floor, the patient appears to be comfortable in no acute distress. She is alert. Does look frail and tired. HEENT: Tympanic membranes are clear bilaterally. Oropharynx is pink with some dry mucosal membranes but no lesions. NECK: Supple, non-tender with full range of motion. No jugular venous distention. CHEST: Lungs are clear to auscultation bilaterally without any rhonchi, wheezing or rales. CARDIOVASCULAR: Regular rate and rhythm without appreciable murmurs, gallops, or rubs with noted sinus bradycardia on bedside telemetry. ABDOMEN: Soft, non-tender with positive bowel sounds. BACK: Exam was atraumatic with no significant tenderness. No vertebral tenderness. EXTREMITIES: Atraumatic with no edema, cyanosis or clubbing. NEUROLOGIC: Cranial nerves II-XII are grossly intact. Facial features were symmetrical. Extraocular movements are within normal limits. There is no notable nystagmus. She was alert and oriented times three. INTEGUMENT: Skin is pink, warm and dry. She does have a healing old ecchymotic area to the left hoahaoism status post fall. LABORATORY: CBC shows a white count of 4,500 with hemoglobin 11.6, hematocrit 34.3, platelet count 171,000. Differential shows to be without a left shift. Coagulation studies showed a PT of 18.1, INR of 1.5 with PTT of 42.3. Chemistries show sodium 129, normal potassium at 4.9, carbon dioxide 30, BUN 37 with creatinine 1.39, glucose 106, calcium 9.1, magnesium normal at 2.2. Liver functions are all within normal limits. CK-MB was slightly elevated at 5.4 but CK was normal at 109. Troponin was less than 0.02. BNP was 499. TSH was normal at 0.56. Urinalysis showed a trace lysed blood with small amount of leukocyte esterase. Microscopic showed no RBCs but 20 to 30 WBCs and 0 to 1 epithelials with 3+ bacteria. MICROBIOLOGY: Urine culture is pending. RADIOLOGY: Initially she had a chest x-ray in the Emergency Department with no definite infiltrates or fluid overload noted per radiology interpretation. She also had a noncontrast CT of the head and per radiology interpretation there is no acute intracranial pathological processes noted. ASSESSMENT: 1. History of atrial fibrillation with a controlled ventricular rate with Amiodarone showing a bradycardic rhythm on admission. 2. Syncope possibly related to some excessive diuresis with a component related to hyponatremia and cannot completely rule out acute symptomatic bradycardia with the patient being on Amiodarone. 3. Chronic congestive heart failure with estimated ejection fraction of 20% on echocardiogram in 2018 with recent hospitalization for exacerbation with 20 pound weight loss from fluid overload. 4. Urinary tract infection with cultures pending. 5. Chronic renal insufficiency exacerbated by excessive diuresis resulting in some mild dehydration possibly contributing to some of the syncopal episodes in conjunction with bradycardia. 6. Psoriatic arthritis. 7. Peptic ulcer disease. 8. Chronic lumbar disc disease on pain management. 9. Hypothyroidism on supplementation with current normal TSH. PLAN: The patient is going to be placed in Observation status tonight for further cardiac telemetry monitoring and replacement of fluids slowly. She was given normal saline 500 bolus in the Emergency Department. This will be followed-up with infusion at 60 mL per hour with close monitoring of her I's and O's. Will resume her home medications once those have been updated and verified as appropriate. She is on DVT prophylaxis, including her Eliquis. The question of whether Amiodarone is a new medication along with she was previously taking metoprolol is a little discrepant between what the patient is telling me and what I am seeing in her previous current medical record in the clinic that has been updated on 08/16/17. Certainly need to followup with Dr. Thompson to get his input as to what the patient actually is on as far as rate control and how much Lasix she has been on in the last several days. The patient reports that she was continued on high dose Lasix at discharge and has been seen in followup since hospitalization at [facility] on 08/16/[address] Thompson. Anticipate her length of stay to be at least 1 to 2 days. Once her sodium is corrected, which is more likely related to excessive diuresis, certainly anticipate discharging to continue with followup with Dr. Thompson as well as Dr. Mena, mechanical meter tester. Possible consideration for Holter monitor for 48 hours to further monitor cardiac rhythms, again with concerns for symptomatic bradycardia. There was mention in previous records at [facility] that the patient was not a candidate for a pacemaker because she was not symptomatic, so certainly warranting further monitoring at discharge. Until stable, will continue to monitor and treat appropriately. #[id number] [facility]
[2017-08-18] MEDS ORDERED: SODIUM CHLORIDE 0.9% (FLUSH) 10 ML SYG IV PRN (19:25)
[2017-08-18] MEDS ORDERED: ACETAMINOPHEN 325 MG TAB PO PRN (19:25)
[2017-08-18] MEDS ORDERED: IV SET AND CAP CHANGE INJ INJ SCH (19:30)
[2017-08-18] MEDS: SODIUM CHLORIDE 0.9% 1000ML 1,000 ML IVS PRN (20:49)
--- NOTE | 2017-08-18 21:58 | PCM.CORE ---
Physician DVT/VTE - Prophylaxis Currently: Patient already on anticoagulation therapy - phuc - Nurse DVT Assessment & Total Each Risk Factor Represents 3 Points: Age over 75 years, Medical PT with Hx of [place], CHF, Severe infection/sepsis DVT Assessment Score: 6 - 5 or more Very High Risk Treatments: Early Ambulation *, Sequential Compression Device
[2017-08-18] MEDS ORDERED: CYANOCOBALAMIN INJ 1,000 MCG/ML INJ IM SCH (22:00)
[2017-08-18] MEDS ORDERED: CITALOPRAM HYDROBROMIDE 10 MG PO SCH (22:00)
[2017-08-18] MEDS ORDERED: NON-FORMULARY MEDICATION 1 EA MIS (Clonazepam [Klonopin] 1 MG) PO SCH (22:00)
[2017-08-18] MEDS ORDERED: cefTRIAXone SODIUM 1 GM VIAL ONE (22:08)
[2017-08-18] MEDS ORDERED: SODIUM CHL 0.9% 50ML MIN-BAG+ 50 ML IVPB ONE (22:08)
[2017-08-18] MEDS ORDERED: CITALOPRAM HBR 20 MG TAB ONE (22:08)
[2017-08-18] MEDS: PRAVASTATIN SODIUM 20 MG TAB PO SCH (22:12)
[2017-08-18] MEDS: GABAPENTIN 300 MG CAP PO SCH (22:12)
[2017-08-18] MEDS: APIXABAN 2.5 MG TAB PO SCH (22:12)
[2017-08-18] MEDS: cefTRIAXone SODIUM 1 GM in SODIUM CHL 0.9% 50ML MIN-BAG+ 50 ML IVPB SCH (22:13)
[2017-08-19] MEDS: SODIUM CHLORIDE 0.9% 1000ML 1,000 ML IVS PRN (02:39)
[2017-08-19] MEDS ORDERED: SODIUM CHL 0.9% 50ML MIN-BAG+ 50 ML IVPB ONE ×2 (08:18→19:43)
[2017-08-19] MEDS ORDERED: cefTRIAXone SODIUM 1 GM VIAL ONE ×2 (08:18→19:43)
[2017-08-19] MEDS ORDERED: LEVOTHYROXINE SODIUM 0.1 MG TAB PO SCH ×2 (09:00→15:30)
[2017-08-19] MEDS ORDERED: NON-FORMULARY MEDICATION 1 EA MIS (Levothyroxine Sodium [Levothyroxine Sodium] 125 MCG) PO SCH (09:00)
[2017-08-19] MEDS ORDERED: LEVOTHYROXINE SODIUM 0.025 MG TAB PO SCH ×2 (09:00→15:30)
[2017-08-19] MEDS: cefTRIAXone SODIUM 1 GM in SODIUM CHL 0.9% 50ML MIN-BAG+ 50 ML IVPB SCH ×2 (09:10→21:27)
[2017-08-19] MEDS: POTASSIUM CHLORIDE 10 MEQ TAB PO SCH (09:10)
[2017-08-19] MEDS: APIXABAN 2.5 MG TAB PO SCH ×2 (09:10→20:07)
[2017-08-19] MEDS: AMIODARONE HCL 200 MG TAB PO SCH (09:10)
[2017-08-19] MEDS ORDERED: BISACODYL TAB 5 MG TAB PO ONE (11:04)
[2017-08-19] MEDS ORDERED: BISACODYL SUPPOSITORY 10 MG PR ONE (11:05)
--- NOTE | 2017-08-19 14:07 | PN ---
SUPERVISING PHYSICIAN: Christian Xiao MD DATE: 08/19/17 SUBJECTIVE: The patient has had no dizziness or syncope since admission. She was worried about her thyroid as they changed her medication in [place] several weeks ago and she as concerns because she has many thyroid problems. I have encouraged to get up and walk in the hallways and to please report to the nursing staff if she has any dizziness or syncopal episodes. OBJECTIVE: VITAL SIGNS: Afebrile. Heart rate 47. It has been running mostly 47 to 50. Blood pressure 133/38. Respiratory rate 16. O2 saturation 97%. RESPIRATORY: Essentially clear to auscultation bilaterally. CARDIAC: Regular rate and rhythm. NEUROLOGIC: Awake, alert and oriented times three. LABORATORY: WBC 5, hemoglobin 11.1, hematocrit 32.7. Sodium is improved to 139 with potassium 3.9, chloride 98, carbon dioxide 27, BUN 32, creatinine 1.26. Urine culture is pending. All other labs and films have been reviewed via the EMR. ASSESSMENT: 1. History of atrial fibrillation with a controlled ventricular rate. She is presently on amiodarone. She has a bradycardic rhythm on EKG on admission. 2. Syncope, possibly related to some excessive diuresis as well as hyponatremia and bradycardia. 3. Chronic congestive heart failure with estimated ejection fraction of 20% on echocardiogram in 2018. She was recently treated in [place] for an exacerbation of congestive heart failure with a 20 pound weight loss from fluid overload. 4. Urinary tract infection, cultures pending. 5. Chronic renal insufficiency, slightly improved. 6. Psoriatic arthritis. 7. Peptic ulcer disease. 8. Chronic lumbar disc disease on pain management. 9. Hypothyroidism. PLAN: We will continue present supportive care. We will watch her heart rate very closely. She will most likely need to be discharged on a Holter monitor. I called Dr. Thompson' office and her metoprolol should have been discontinued. I made sure that has been done. I have discontinued her IV fluids. I rechecked her lab in the morning. We will monitor her closely for fluid overload. I will also start back her diuretic slowly at a low dose tomorrow. Again, we will ambulate her several times daily and make sure she does not have any dizziness or syncopal episodes. We will monitor urine culture. She had earlier complained of some constipation, so I gave her some Dulcolax orally as well as by mouth and she has had a small bowel movement. We will monitor that also. I will check her T4 and free T3 in the morning as she just recently had a thyroid medication change. We will continue to monitor the patient closely and follow as needed. Dr. Xiao is the collaborating physician and available for consultation. #[id number] [facility]
[2017-08-19] MEDS: SODIUM CHLORIDE 0.9% (FLUSH) 10 ML SYG IV SCH (20:08)
[2017-08-19] MEDS: PRAVASTATIN SODIUM 20 MG TAB PO SCH (20:08)
[2017-08-19] MEDS: GABAPENTIN 300 MG CAP PO SCH (20:08)
[2017-08-19] MEDS ORDERED: traMADol HCL 50 MG TAB PO PRN (20:42)
[2017-08-19] MEDS ORDERED: CITALOPRAM HBR 20 MG TAB PO SCH (21:00)
[2017-08-20 05:37] VITALS: BP 151/56; TEMP 98.2; O2SAT 98
--- NOTE | 2017-08-20 06:44 | RAD ---
EXAM: SUPINE AND UPRIGHT VIEWS OF THE ABDOMEN RADIOGRAPH CLINICAL INDICATION: Pain. Constipation. COMPARISON: None. FINDINGS: Normal bowel gas pattern with bowel gas extending into the sigmoid colon and rectum. No radiographic evidence of constipation. No mechanical bowel obstruction or free peritoneal gas on these 2 views. Sequela of remote cholecystectomy. Partially visualized degenerative disease in the lower lumbosacral spine. IMPRESSION: No evidence of constipation. No bowel obstruction or free peritoneal gas. Electronically signed by: Maurice Zimmerman MD 08/20/2017 6:43 AM CDT
[2017-08-20] MEDS ORDERED: SODIUM CHL 0.9% 50ML MIN-BAG+ 0 ML IVPB ONE (08:00)
[2017-08-20] MEDS ORDERED: cefTRIAXone SODIUM 1 GM VIAL ONE (08:01)
[2017-08-20] MEDS: POTASSIUM CHLORIDE 10 MEQ TAB PO SCH (08:17)
[2017-08-20] MEDS: APIXABAN 2.5 MG TAB PO SCH (08:17)
[2017-08-20] MEDS: AMIODARONE HCL 200 MG TAB PO SCH (08:17)
[2017-08-20] MEDS: SODIUM CHLORIDE 0.9% (FLUSH) 10 ML SYG IV SCH (08:17)
[2017-08-20] MEDS ORDERED: FUROSEMIDE 40 MG TAB PO SCH (10:00)
--- NOTE | 2017-08-20 10:29 | DS ---
SUPERVISING PHYSICIAN: Chrsitian Xiao MD DISCHARGE DIAGNOSIS: 1. History of atrial fibrillation with a controlled ventricular rate. She is presently on amiodarone. She had a bradycardic rhythm on EKG on admission and continues to have bradycardia most of the time. 2. Syncope, probably related to some excessive diuresis as well as hyponatremia and bradycardia. 3. Chronic congestive heart failure with estimated ejection fraction of 20% on echocardiogram in 2018. She was recently treated in [place] for an exacerbation of congestive heart failure. She was treated and had a 20 pound weight loss from fluid overload. 4. Urinary tract infection, cultures pending. 5. Chronic renal insufficiency, slightly improved. Baseline creatinine is 1.1. 6. Psoriatic arthritis. 7. Peptic ulcer disease. 8. Chronic lumbar disc disease on pain management. 9. Hypothyroidism. HISTORY OF PRESENT ILLNESS: This is an 81-year-old female patient who presented to the Emergency Room via private vehicle after her family noted she had had several syncopal episodes over the last several days. She had passed out at the table at one time and hit her head on the left side resulting in a contusion above her left eye. She does have a history of congestive heart failure and atrial fibrillation. She was recently at [facility] on 07/30/17 for exacerbation of congestive heart failure. At that time they diuresed over 20 pounds of fluid off of her. The patient had been on amiodarone as well as metoprolol. It was unclear if she had been taking the metoprolol in addition to the amiodarone, but the metoprolol was supposedly discontinued. She was also discharged with high dose diuretics. Originally, she had 20 mg of Lasix daily and she was discharged on 60 mg. In the Emergency Room, telemetry showed bradycardia in the 40s to 50s. It was actually reported to Dr. Thompson' office that home health had originally reported a heart rate in the 30s and she was instructed to go to the Emergency Room. Her blood pressure remained stable with systolic in the 140s to 150s. She also has a history of iron deficiency anemia secondary to renal insufficiency and is currently on Procrit injections. CT of the head was completed and showed no acute intracranial pathological process. Chest x-ray blunting of the left costophrenic angle compatible with small left sided pleural effusion with a mild persistent elevation of the left hemidiaphragm, unchanged from previous studies. 12 lead EKG showed sinus bradycardia at 52 with a right bundle branch block which is a chronic finding. Given her past medical history, recent hospitalization and concerns for additional syncopal episodes due, the patient was placed in Observation in the hospital. HOSPITAL COURSE: The patient was placed on fluid restriction. Her medications were verified and her metoprolol was discontinued. Physical therapy was consulted and she had no problems with her ambulation. She also had nursing ambulate her multiple times in the hallways. Again, she had no syncopal episodes while in the hospital. Her Lasix was restarted at 20 mg. She also had 4 doses of Rocephin due to her urinary tract infection. She did complain of constipation which is chronic in nature. She said she thought she had not had a bowel movement for almost 2 weeks. She was given Dulcolax suppository as well as oral Dulcolax and had good results. Her thyroid medication was changed in [place] and TSH was repeated and was within normal limits. She continued to have bradycardia on the cane loader although, again, she did not have any syncopal episodes while in the hospital. She will be discharged home today. LABORATORY: Significant lab in the hospital showed her sodium on admission was 129 and today it is 134. Her potassium has been stable. Her creatinine was 1.39 on admission. Today, it is 1.24. Her baseline is 1.1. TSH 0.52. WBCs were about 4.5 to 5. hemoglobin remained about 11 and hematocrit remained about 33. DISCHARGE PLAN: The patient will be discharged home today with [facility] that also includes physical therapy. I recommended she be on a fluid restriction of approximately 1500 mL per day as well as low-salt diet. Her metoprolol is to be discontinued and she is to continue on the amiodarone. She has an appointment with Dr. Thompson on Wednesday at 8:45. I started her on Lasix 20 mg today and she most likely will need it increased to 40 mg for her routine dose, but due to her syncopal episodes, I will start her diuretics slowly. She will also go home on a Holter monitor to be continued until she sees Dr. Thompson on Wednesday. I have elected not to give her any antibiotics for her urinary tract infection as she has had 4 doses of Rocephin. Her urine cultures are pending, so at her followup appointment, it would be beneficial to check the culture results. I have recommended she do MiraLAX daily for her chronic constipation. She is to continue on her present dose of Synthroid. She can check her TSH in 2 to 3 months. She is to report if she has any syncopal episodes. She is to return to the hospital or followup with Dr. Thompson ' office for any further problems or complications. DISCHARGE MEDICATIONS: 1. Tramadol. 2. Cyanocobalamin. 3. Senokot. 4. Pravastatin. 5. Gabapentin. 6. Potassium chloride. 7. Eliquis. 8. Levothyroxine. 9. Amiodarone. 10. Citalopram. 11. Clonazepam. 12. Furosemide. 13. MiraLAX. #[id number] [facility]
[2017-08-20] MEDS: cefTRIAXone SODIUM 1 GM in SODIUM CHL 0.9% 50ML MIN-BAG+ 50 ML IVPB SCH (11:58)
== END 2017-08-20 12:11 | disposition home health service (06) ==
LOC: ER 16:15 → MS 18:32
PROVIDERS: ADMIT Nurse Practitioner Family; ATTEND Nurse Practitioner Acute Care
DX: I48.91 Unspecified atrial fibrillation (principal); R00.1 Bradycardia, unspecified; R55 Syncope and collapse; N39.0 Urinary tract infection, site not specified; E87.1 Hypo-osmolality and hyponatremia; I13.0 Hypertensive heart and chronic kidney disease with heart failure and stage 1 through stage 4 chronic kidney disease, or unspecified chronic kidney disease; I50.22 Chronic systolic (congestive) heart failure; N18.9 Chronic kidney disease, unspecified; L40.50 Arthropathic psoriasis, unspecified; K27.9 Peptic ulcer, site unspecified, unspecified as acute or chronic, without hemorrhage or perforation; G89.29 Other chronic pain; M51.36 Other intervertebral disc degeneration, lumbar region; E03.9 Hypothyroidism, unspecified; D50.9 Iron deficiency anemia, unspecified; D63.1 Anemia in chronic kidney disease; I45.10 Unspecified right bundle-branch block; K59.09 Other constipation; E78.5 Hyperlipidemia, unspecified; Z91.81 History of falling; Z79.01 Long term (current) use of anticoagulants; Z79.1 Long term (current) use of non-steroidal anti-inflammatories (NSAID); Z79.891 Long term (current) use of opiate analgesic; Z79.899 Other long term (current) drug therapy; Z88.0 Allergy status to penicillin; Z87.891 Personal history of nicotine dependence
CPT/HCPCS: 96365; 96366; 96376; J0696 ×3; J7030 ×2; J7050 ×3; 80048; 82553; 80053 ×2; 87086; 36415 ×2; 87077; 87186; 81001; 85025 ×3; 82550; 83735 ×2; 85730; 85610; 84443 ×2; 84436; 84484; 83880; 87070; 74019; 71045; 70450; 94760 ×3; 93225; 97116; G8978; G8979; 97162; 99285; 93005; G0378

== ENCOUNTER → 2017-09-14 | Outpatient (CLI) | payer MEDICARE, OTHER | LOC: BFHH 12:53 | PROVIDERS: ATTEND Family Medicine | DX: N18.9 Chronic kidney disease, unspecified (principal); D63.1 Anemia in chronic kidney disease ==

== ENCOUNTER → 2017-09-28 | Outpatient (CLI) | payer OTHER | LOC: BFHOS 14:53 | PROVIDERS: ATTEND Family Medicine | DX: D50.8 Other iron deficiency anemias (principal) ==

== ENCOUNTER → 2017-10-01 | Outpatient (CLI) | payer OTHER | LOC: BFHOS 11:33 | PROVIDERS: ATTEND Family Medicine | DX: R50.9 Fever, unspecified (principal) ==

== ENCOUNTER → 2017-10-11 | Outpatient (CLI) | payer MEDICARE, OTHER | LOC: BFHOS 14:25 | PROVIDERS: ATTEND Family Medicine | DX: D50.8 Other iron deficiency anemias (principal) ==

== ENCOUNTER → 2017-11-09 | Outpatient (CLI) | payer OTHER | LOC: BFHOS 15:41 | PROVIDERS: ATTEND Family Medicine | DX: N18.9 Chronic kidney disease, unspecified (principal); D63.1 Anemia in chronic kidney disease ==

== ENCOUNTER → 2017-11-23 | Outpatient (CLI) | payer OTHER | LOC: BFHOS 15:03 | PROVIDERS: ATTEND Family Medicine | DX: N18.9 Chronic kidney disease, unspecified (principal); D63.1 Anemia in chronic kidney disease ==

== ENCOUNTER → 2017-12-03 | Outpatient (CLI) | payer OTHER | LOC: BFHOS 16:01 | PROVIDERS: ATTEND Family Medicine | DX: D50.8 Other iron deficiency anemias (principal) ==

== ENCOUNTER → 2017-12-21 | Outpatient (CLI) | payer MEDICARE, OTHER | LOC: BFHH 11:37 | PROVIDERS: ATTEND Family Medicine | DX: N18.9 Chronic kidney disease, unspecified (principal); D63.1 Anemia in chronic kidney disease ==

== ENCOUNTER → 2018-01-04 | Outpatient (CLI) | payer MEDICARE, OTHER | LOC: GMAJ 13:03 | PROVIDERS: ATTEND Family Medicine | DX: N18.9 Chronic kidney disease, unspecified (principal); D63.1 Anemia in chronic kidney disease ==

== ENCOUNTER → 2018-08-15 | Outpatient (CLI) | payer MEDICARE, OTHER ==
--- NOTE | 2018-08-15 15:49 | RAD ---
EXAM: Foot,Left 3 Views CLINICAL HISTORY: M79.672. TECHNIQUE: AP, lateral and oblique images. COMPARISON STUDY: Left foot x-ray November 10, 2012 FINDINGS: There is a diffuse demineralization of the left foot. No displaced fracture is identified. There are no dislocations. There are moderate degenerative changes of all of the interphalangeal joint and probable chronic postoperative changes of the fifth proximal interphalangeal joint. Mild degenerative changes of the first metatarsophalangeal joint present. There are [id number] degenerative changes of the intertarsal joints IMPRESSION: 1. Diffuse demineralization. 2. No acute fracture or dislocation. 3. Osteoarthritic changes of the interphalangeal joint and intertarsal joints. Electronically signed by: Fredy Cohn MD 08/15/2018 3:47 PM CDT
== END ==
LOC: RAD 09:10
PROVIDERS: ATTEND Orthopaedic Surgery
DX: M19.072 Primary osteoarthritis, left ankle and foot (principal); M81.0 Age-related osteoporosis without current pathological fracture

== ENCOUNTER → 2018-10-10 | Outpatient (CLI) | payer MEDICARE, OTHER ==
--- NOTE | 2018-10-10 11:21 | RAD ---
EXAM DESCRIPTION: Knee,Right Complete CLINICAL HISTORY: 82 years, Female, pain. COMPARISON: None TECHNIQUE: Four views of the right knee FINDINGS: No acute displaced fracture or dislocation is seen. Severe end-stage joint space narrowing is present at the medial knee compartment. Small osteophyte formation at the lateral knee and patellofemoral compartments. Moderate size knee joint effusion is seen. Mild meniscal chondrocalcinosis. The bone mineralization is decreased. Vascular calcifications are present. IMPRESSION: 1. No displaced fracture or dislocation. 2. Severe right medial knee osteoarthrosis with moderate size knee joint effusion. Electronically signed by: Jimmy Jasmine DO 10/10/2018 11:19 AM CDT
--- NOTE | 2018-10-10 11:34 | RAD ---
EXAM DESCRIPTION: Pelvis CLINICAL HISTORY: 82 years Female, M25.561/M25.551 COMPARISON: Pelvic radiograph 12/16/2015. FINDINGS/IMPRESSION: Frontal view of the pelvis demonstrate diffuse osteopenia. Changes of left femur cephalomedullary nail fixation securing an intertrochanteric fracture without hardware fracture or hardware displaced. The left intertrochanteric fracture demonstrate bridging callus formation with residual fracture lucency. Mild right hip osteoarthrosis. Scattered soft tissue heterotopic ossification. Vascular calcifications are present. Electronically signed by: Jimmy Jasmine DO 10/10/2018 11:32 AM CDT
== END ==
LOC: RAD 08:51
PROVIDERS: ATTEND Orthopaedic Surgery
DX: M16.11 Unilateral primary osteoarthritis, right hip (principal); M17.11 Unilateral primary osteoarthritis, right knee; M85.88 Other specified disorders of bone density and structure, other site; I70.90 Unspecified atherosclerosis; Z98.890 Other specified postprocedural states; Z87.81 Personal history of (healed) traumatic fracture